=== PATIENT | female | born 1945 | race Two or more races ===

== ENCOUNTER 2019-04-25 19:47 | Emergency (ER) | payer MEDICARE, OTHER ==
[~2019-04-25] VITALS: Ht 149.9 cm; Wt 73.0 kg
[2019-04-25 20:59] VITALS: BP 159/77
== END 2019-04-25 22:47 | disposition home or self-care (01) ==
LOC: ER 19:50
DX: H60.92 Unspecified otitis externa, left ear (principal); I10 Essential (primary) hypertension; E11.9 Type 2 diabetes mellitus without complications